=== PATIENT | male | born 1945 | race Caucasian/White ===

== ENCOUNTER 2016-12-30 13:24 | Observation (INO) | payer OTHER, SELFPAY ==
--- NOTE | ~2016-12-30 | DS ---
Discharge Summary [id number] [facility] [place]. [address] NAME: JAIME MANSFIELD : 41 STATUS : DIS Sammi PAT#: [id number] AGE: 71 ADM/REG DATE : 12/30/16 MR#: [id number] REPORT SERV DATE: 12/31/16 DICTATED BY: ERASMO RODRIGUEZ DATE: 12/31/16 REPORT STATUS : Draft TRANSCRIBED BY: PATO DATE: 12/31/16 ADMISSION DATE: 12/30/2016 DISCHARGE DATE: 12/30/2016 DIAGNOSES: 1. Early right middle lobe/right lower lobe pneumonia. 2. Mild chronic obstructive pulmonary disease exacerbation. 3. Hypertension. HOSPITAL COURSE: After the patient was admitted through the emergency department and was transferred up to the CDU observation unit, the patient became upset that he did not have a private bathroom and also wanted something to eat. The nurse was informed to give the patient some food and to check with bed board to find a different room on a different shelton that has a private bathroom. However, the patient and daughter wanted to leave AMA anyway. The daughter was very irate yelling and occasionally using profanity, and the patient agreed with leaving AMA. The risk of leaving AMA also was explained to the patient and also the risk of not having appropriate treatment for his pneumonia was explained. The patient signed out AMA. [facility] Erasmo Rodriguez M.D. / [id number] CC: Meka Ragland M.D.
--- NOTE | ~2016-12-30 | HP ---
History And Physical [id number] [place]. [address] NAME: JAIME MANSFIELD : 41 STATUS : ADM Sammi PAT#: [id number] AGE: 71 ADM/REG DATE : 12/30/16 MR#: [id number] REPORT SERV DATE: 12/30/16 DICTATED BY: ERASMO RODRIGUEZ DATE: 12/30/16 REPORT STATUS : Draft TRANSCRIBED BY: PATO DATE: 12/30/16 DATE OF ADMISSION: 12/30/2016 CHIEF COMPLAINT: Severe rigors. HISTORY OF PRESENT ILLNESS: A 71 years old male with a past medical history of COPD with intermittent 3 L oxygen, also history of hypertension and atrial fibrillation, who presented with a chief complaint of severe rigors that occurred this morning with chills, with abrupt onset. The patient denied any sore throat. No chest discomfort. No cough. Has some mild shortness of breath increased from his baseline. He denied any nausea or vomiting. No abdominal discomfort. States he is up to date for his influenza and Pneumovax. The patient was seen in the ER by Dr. Quijano who ordered a chest x-ray after the patient was found to have a temp of 100.6. Per radiologist, there was no acute finding. However, ER physician found some right middle lobe and right lower lobe early pneumonia, and called the hospitalist to admit the patient to the hospital. The patient denies chest pain. REVIEW OF SYSTEMS: Please refer to HPI. PAST MEDICAL HISTORY: COPD with intermittent O2; AAA with contained rupture, status post endovascular repair by Dr. Stephens; AFib; peripheral vascular disease; hypertension; and CKD. PAST SURGICAL HISTORY: Tonsillectomy. Please see above. SOCIAL HISTORY: [id number] history. The patient states that he is now down to 3-4 cigarettes a day. No alcohol or illicit drugs. ALLERGIES: PENICILLIN CAUSES ANAPHYLAXIS. SHELLFISH. FAMILY HISTORY: Type 2 diabetes and coronary artery disease. HOME MEDICATIONS: Albuterol 1 puff inhaled every 4 hours p.r.n., Symbicort 160/4.5 two puffs inhaled b.i.d., cholecalciferol 1000 units p.o. daily, diltiazem ER 240 mg p.o. daily. PHYSICAL EXAMINATION: VITAL SIGNS: A temp of 100.6. Initial blood pressure was 181/80, now at 116/61 with a pulse of 93, respirations of 20, saturating 92% to 96% on room air. GENERAL: The patient is alert and oriented x3. Hard of hearing. HEENT: Pupils equal, round, and reactive to light. Ocular muscles are intact. Moist mucous membranes. CARDIOVASCULAR: S1, S2. Regular rate and rhythm. No murmurs, rubs, or gallops. RESPIRATORY: With mild expiratory wheeze, mild rhonchi. Otherwise clear. No signs of tachypnea. ABDOMEN: Positive bowel sounds. Soft, nontender. No rebound. No fluid wave. EXTREMITIES: Warm extremities. No edema. The patient with a knee brace of the left knee. History And Physical [address] [address] NAME: JAIME MANSFIELD : 41 STATUS : ADM Sammi PAT#: [id number] AGE: 71 ADM/REG DATE : 12/30/16 MR#: [id number] REPORT SERV DATE: 12/30/16 DICTATED BY: ERASMO RODRIGUEZ DATE: 12/30/16 REPORT STATUS : Draft TRANSCRIBED BY: PATO DATE: 12/30/16 NEURO: Cranial nerves 2 through 12, grossly intact. Moves all 4 extremities. No neuro focal deficits. IMAGING: EKG: With normal sinus rhythm. No ST changes. Chest x-ray: With some early haziness/infiltrate in the right middle lobe and right lower lobe per my interpretation and ER physician's interpretation. LABORATORY DATA: Sodium 143, potassium 4.2 with a chloride of 104, bicarb of 32, BUN of 14, creatinine of 1.32 with a glucose of 108. Albumin of 3.5, T bili is 0.6, alkaline phos of 51, ALT of 18, AST of 12. Lactate of 1.3. White count of 10 with a hemoglobin of 15.2, platelet count 234. Influenza swab, initially negative. UA negative. ASSESSMENT AND PLAN: 1. Early pneumonia, right middle lobe and right lower lobe. 2. Chronic obstructive pulmonary disease, mild exacerbation. 3. Hypertension. 4. The patient will be admitted to Dr. Hope Navarro, under observation. We will initiate antibiotics with Levaquin and may expect possible discharge in the morning with close monitoring and followup, with pending blood cultures. We will continue with bronchodilators. [facility] Erasmo Rodriguez M.D. / [id number] CC: Meka Ragland M.D.
[2016-12-30 12:34] LABS: BASOPHILS 0.2 %; BASOPHILS ABSOLUTE 0.02 10/3/uL (0.0-0.16); EOSINOPHILS 0.8 %; EOSINOPHILS ABSOLUTE 0.08 10/3/uL (0.0-0.53); ER CBC TAT 0 Hrs 05 Mins; HEMATOCRIT 45.2 % (40.0-51.0); HEMOGLOBIN 15.2 g/dL (13.6-17.8); IMMATURE GRANULOCYTES 0.2 %; IMMATURE GRANULOCYTES ABSOLUTE 0.02 10/3/uL (0.0-0.11); LYMPHOCYTES 5.6 %; LYMPHOCYTES ABSOLUTE 0.56 10/3/uL (0.67-4.30); MEAN CORPUS HGB CONC 33.6 g/dL (32.0-36.0); MEAN CORPUSCULAR HEMOGLOB 30.3 pg (26.0-34.0); MEAN CORPUSCULAR VOLUME 90.2 fL (80-100); MEAN PLATELET VOLUME 9.5 fL (9.2-13.0); MONOCYTES 1.5 %; MONOCYTES ABSOLUTE 0.15 10/3/uL (0.21-1.20); NEUTROPHILS 91.7 %; NEUTROPHILS ABSOLUTE 9.14 10/3/uL (2.02-8.40); PLATELET COUNT 234 10/3/uL (150-400); RBC DISTRIBUTION WIDTH 13.3 % (12.0-16.0); RED CELL COUNT 5.01 10/6/uL (4.7-6.1)
[2016-12-30 12:35] LABS: MANUAL DIFF NO %
[2016-12-30 12:46] LABS: INFLUENZA A SCREEN NEGATIVE (NEGATIVE); INFLUENZA B SCREEN NEGATIVE (NEGATIVE)
[2016-12-30 12:49] LABS: A/G RATIO 0.9 (0.7-1.9); ALBUMIN 3.5 G/DL (3.5-5.0); ALKALINE PHOSPHATASE 151 U/L (45-117); BUN (BLOOD UREA NITROGEN) 14 MG/DL (6-23); CHLORIDE, SERUM 104 MMOL/L (96-112); CO2 (CARBON DIOXIDE) 32 MMOL/L (24-34); CREATININE 1.32 MG/DL (0.70-1.30); GFR AFRICAN AMERICAN 62 ML/MIN (>=60); GFR NON AFRICAN AMERICAN 53 ML/MIN (>=60); POTASSIUM, SERUM 4.2 MMOL/L (3.5-5.3); SGOT(AST) 12 U/L (5-40); SGPT(ALT) 18 U/L (5-65); SODIUM, SERUM 143 MMOL/L (135-148); TOTAL BILIRUBIN 0.6 MG/DL (0-1.2); TOTAL PROTEIN 7.5 G/DL (6.0-8.5)
[2016-12-30 12:50] LABS: GLUCOSE, SERUM 108 MG/DL (60-99)
[2016-12-30 12:51] LABS: LACTATE 1.3 MMOL/L (0.3-2.4)
[~2016-12-30 13:24] MED LIST: CARDCD180 PO; LOPID6 PO; LOTE20 PO; NORCO1 TA1 PO; NORV10 PO
[2016-12-30 13:37] LABS: ASCORBIC ACID (UR NOT ORDER) NEG (NEG); BILIRUBIN, URINE NEGATIVE (NEG); ER URINALYSIS TAT 0 Hrs 09 Mins; KETONE, URINE NEGATIVE (NEG); LEUKOCYTE ESTERASE(NOT OR NEG (NEG); NITRITE (URINE) NEG (NEG); WBC (NOT ORDERED) (RFLEX) < 1 (0-5)
[2016-12-30] MEDS ORDERED: VITAMIN D31000 UNIT PO (14:48)
[2016-12-30] MEDS ORDERED: CARTIA XT240 MG/24 PO (14:48)
[2016-12-30] MEDS ORDERED: SYMBICORT 160/41 INH INH (14:48)
[2016-12-30] MEDS ORDERED: VENTOLIN HFA INH (14:48)
== END 2016-12-30 17:26 | disposition left against medical advice (07) ==
LOC: ER 13:24 → CDU1 15:35 → CDU2 16:38
PROVIDERS: Emergency Medicine
DX: J18.1 Lobar pneumonia, unspecified organism (principal); J44.1 Chronic obstructive pulmonary disease with (acute) exacerbation; I10 Essential (primary) hypertension; Z99.81 Dependence on supplemental oxygen; I48.91 Unspecified atrial fibrillation; I73.9 Peripheral vascular disease, unspecified; Z90.89 Acquired absence of other organs; Z88.0 Allergy status to penicillin; Z91.013 Allergy to seafood; Z83.3 Family history of diabetes mellitus; Z82.49 Family history of ischemic heart disease and other diseases of the circulatory system; Z79.899 Other long term (current) drug therapy; Z79.51 Long term (current) use of inhaled steroids
CPT/HCPCS: 71010; 80053; 81001; 83605; 85025; 87040; 87449; 87804; 93005; 99284; A9270-GY; G0378